=== PATIENT | male | born 1970 | race Caucasian/White ===

== ENCOUNTER 2021-04-06 19:56 | Emergency (ER) | payer MEDICAID ==
[~2021-04-06] VITALS: Ht 165.1 cm; Wt 77.0 kg
[2021-04-06] MEDS ORDERED: DILTIAZEM HCL 5MG/ML 5ML VIAL IV ONE ×2 (21:30)
[2021-04-06 21:50] LABS: BASOPHILS % 0.4 % (0.0-2.0); EOSINOPHILS % 0.7 % (0.0-5.0); HEMATOCRIT. 33.4 % (42.0-52.0); HEMOGLOBIN. 11.3 g/dL (14.0-18.0); LYMPHOCYTES % 16.4 % (20.0-50.0); MEAN CORPUSCULAR VOLUME 91.6 fL (80.0-94.0); MEAN PLATELET VOLUME 9.9 fl (7.4-10.4); MONOCYTES % 9.2 % (2.0-8.0); NEUTROPHILS % 73.3 % (40.0-76.0); PLATELET 279 x1000/uL (130-400); RED BLOOD CELL COUNT 3.65 mill/uL (4.7-6.1); RED CELL DISTRIBUTION WIDTH 13.3 % (11.6-14.6)
[2021-04-06 22:01] LABS: CHLORIDE 110 mEq/L (98-107)
[2021-04-06 22:04] LABS: ETHANOL BLOOD < 10 mg/dL
[2021-04-06] MEDS ORDERED: DILTIAZEM HCL 125 MG in DEXT 5% WATER 100 ML IV STA (23:23)
[2021-04-06] MEDS ORDERED: DILTIAZEM HCL 125 MG in DEXT 5% WATER 100 ML IV PRN (23:30)
[2021-04-06 23:42] LABS: *AMPHETAMINES SCREEN URINE PRESUMTIVE POSITIVE (NEGATIVE); *BARBITURATES SCREEN URINE NEGATIVE (NEGATIVE); *BENZODIAZEPINES SCREEN URINE NEGATIVE (NEGATIVE); *COCAINE SCREEN URINE NEGATIVE (NEGATIVE); CANNABINOID URINE SCREEN NEGATIVE (NEGATIVE); METHADONE URINE SCREEN NEGATIVE (NEGATIVE); OPIATES URINE SCREEN NEGATIVE (NEGATIVE); PHENCYCLIDINE URINE SCREEN NEGATIVE (NEGATIVE)
[2021-04-06] MEDS ORDERED: ASPIRIN 81MG TABLET PO ONE (23:45)
[2021-04-06] MEDS ORDERED: ENOXAPARIN 80MG/0.8ML SYR SUBCUT ONE (23:45)
[2021-04-07] MEDS ORDERED: METOPROLOL TARTRATE 25MG TABLET PO SCH (01:30)
[2021-04-07] MEDS ORDERED: IOHEXOL-350 100 ML BOTTLE ONE (04:40)
[2021-04-07 06:12] VITALS: BP 122/88
== END 2021-04-07 06:14 | disposition left against medical advice (07) ==
LOC: EDBD 19:56 → ER 19:56 → UNDOADMIN 23:34 → MICUSO 23:34
DX: I47.1 Supraventricular tachycardia (principal); I48.92 Unspecified atrial flutter; F15.10 Other stimulant abuse, uncomplicated; I25.2 Old myocardial infarction; Z88.6 Allergy status to analgesic agent; Z79.82 Long term (current) use of aspirin
CPT/HCPCS: 36415; 71045; 71275; 80048; 80305; 80320; 83735; 84484; 85025; 85379; 93005; 96372; 99285; J1650; J3490; Q9967; J7060; G0480

== ENCOUNTER 2021-04-08 06:08 | Inpatient (IN) | payer MEDICAID, OTHER ==
[~2021-04-08] VITALS: Ht 175.3 cm; Wt 79.8 kg
[2021-04-08] MEDS ORDERED: MORPHINE SULFATE 4 MG/ML CPJ (NOT FOR IM USE) IV STA (06:56)
[2021-04-08 07:11] LABS: BASOPHILS % 0.3 % (0.0-2.0); EOSINOPHILS % 1.6 % (0.0-5.0); HEMATOCRIT. 35.9 % (42.0-52.0); LYMPHOCYTES % 15.1 % (20.0-50.0); MEAN CORPUSCULAR HEMOGLOBIN 30.5 pg (28.0-32.0); MEAN CORPUSCULAR VOLUME 91.4 fL (80.0-94.0); MEAN PLATELET VOLUME 8.9 fl (7.4-10.4); MONOCYTES % 8.6 % (2.0-8.0); NEUTROPHILS % 74.4 % (40.0-76.0); PLATELET 295 x1000/uL (130-400); RED BLOOD CELL COUNT 3.93 mill/uL (4.7-6.1); RED CELL DISTRIBUTION WIDTH 13.4 % (11.6-14.6)
[2021-04-08] MEDS ORDERED: DILTIAZEM HCL 5MG/ML 5ML VIAL IV ONE ×2 (07:15→08:00)
[2021-04-08] MEDS ORDERED: MAGNESIUM 2 G PREMIX 50 ML IV ONE (07:15)
[2021-04-08 07:18] LABS: CHLORIDE 110 mEq/L (98-107)
[2021-04-08] MEDS ORDERED: ASPIRIN 81MG TABLET PO ONE (09:30)
[2021-04-08] MEDS ORDERED: DILTIAZEM HCL 125 MG in DEXT 5% WATER 100 ML IV ONE (09:30)
[2021-04-08] MEDS ORDERED: ESMOLOL 2500MG PREMIX 250 ML IV ONE ×2 (10:15→10:45)
[2021-04-08] MEDS ORDERED: ESMOLOL 2500MG PREMIX 250 ML IV NR (10:45)
[2021-04-08] MEDS ORDERED: CLONIDINE 0.1MG TABLET PO PRN (11:15)
[2021-04-08] MEDS ORDERED: MORPHINE SULFATE 4 MG/ML CPJ (NOT FOR IM USE) IV ONE (11:15)
[2021-04-08] MEDS ORDERED: LORAZEPAM 2MG/ML CPJ IV ONE (11:45)
[2021-04-08 12:07] LABS: *AMPHETAMINES SCREEN URINE PRESUMTIVE POSITIVE (NEGATIVE); *BARBITURATES SCREEN URINE NEGATIVE (NEGATIVE); *BENZODIAZEPINES SCREEN URINE NEGATIVE (NEGATIVE); *COCAINE SCREEN URINE NEGATIVE (NEGATIVE)
[2021-04-08 12:08] LABS: CANNABINOID URINE SCREEN NEGATIVE (NEGATIVE); METHADONE URINE SCREEN NEGATIVE (NEGATIVE); OPIATES URINE SCREEN PRESUMTIVE POSITIVE (NEGATIVE); PHENCYCLIDINE URINE SCREEN NEGATIVE (NEGATIVE)
[2021-04-08] MEDS ORDERED: ACETAMINOPHEN 325MG TABLET PO PRN ×2 (12:30)
[2021-04-08] MEDS ORDERED: GUAIFENESIN 200MG/10ML SUGAR FREE UDC PO PRN (12:30)
[2021-04-08] MEDS ORDERED: MAGNESIUM/ALUMINUM HYDROXIDE/SIMETHICONE 30ML UDC PO PRN (12:30)
[2021-04-08] MEDS ORDERED: AMIODARONE HCL 150 MG in DEXT 5% WATER 100 ML IV ONE (12:30)
[2021-04-08] MEDS ORDERED: ONDANSETRON HCL 4MG/2ML INJ IV PRN (12:30)
[2021-04-08] MEDS ORDERED: AMIODARONE HCL 900 MG in DEXT 5% WATER 500 ML IV ONE (12:30)
[2021-04-08] MEDS ORDERED: DOCUSATE SODIUM 100MG CAPSULE PO PRN (12:30)
[2021-04-08 12:59] LABS: TOTAL IRON BINDING CAPACITY 314 ug/dL (250-450)
[2021-04-08 13:14] LABS: FOLIC ACID (FOLATE) SERUM 18.4 ng/mL (>5.38)
[2021-04-08] MEDS ORDERED: DILTIAZEM HCL 125 MG in DEXT 5% WATER 100 ML IV PRN (15:45)
[2021-04-08] MEDS ORDERED: DIGOXIN 500MCG/2ML AMP IV NR (15:55)
[2021-04-08 16:01] LABS: INR 1.3
[2021-04-08] MEDS: DILTIAZEM HCL 125 MG in DEXTROSE 5% WATER 125 ML IV PRN (16:35)
[2021-04-08 16:36] LABS: T4 FREE 1.23 ng/dL (0.76-1.46)
[2021-04-08] MEDS: ENOXAPARIN 80MG/0.8ML SYR SUBCUT SCH (18:09)
[2021-04-08] MEDS: CARVEDILOL 3.125 MG TABLET PO SCH (18:39)
[2021-04-08] MEDS ORDERED: DIGOXIN 500MCG/2ML AMP IV PRN (20:00)
[2021-04-08] MEDS: LORAZEPAM 2MG/ML CPJ IV PRN (23:44)
[2021-04-09] MEDS: CARVEDILOL 3.125 MG TABLET PO SCH (02:00)
[2021-04-09] MEDS ORDERED: DIGOXIN 500MCG/2ML AMP IV NR (04:15)
[2021-04-09 05:30] LABS: CHLORIDE 107 mEq/L (98-107)
[2021-04-09 05:38] LABS: PHOSPHORUS 3.4 mg/dL (2.5-4.9)
[2021-04-09 05:40] LABS: CREATINE KINASE 72 IU/L (39-308)
[2021-04-09 05:42] LABS: BASOPHILS % 0.6 % (0.0-2.0); EOSINOPHILS % 1.4 % (0.0-5.0); HEMATOCRIT. 36.6 % (42.0-52.0); HEMOGLOBIN. 12.3 g/dL (14.0-18.0); LYMPHOCYTES % 18.3 % (20.0-50.0); MEAN CORPUSCULAR VOLUME 92.3 fL (80.0-94.0); MEAN PLATELET VOLUME 9.9 fl (7.4-10.4); MONOCYTES % 8.9 % (2.0-8.0); NEUTROPHILS % 70.8 % (40.0-76.0); PLATELET 313 x1000/uL (130-400); RED BLOOD CELL COUNT 3.97 mill/uL (4.7-6.1); RED CELL DISTRIBUTION WIDTH 13.8 % (11.6-14.6)
[2021-04-09] MEDS: ENOXAPARIN 80MG/0.8ML SYR SUBCUT SCH ×2 (06:00→18:00)
[2021-04-09] MEDS ORDERED: DIGOXIN 500MCG/2ML AMP IV PRN (08:00)
[2021-04-09] MEDS: METOPROLOL TARTRATE 25MG TABLET PO SCH ×3 (08:38→23:19)
[2021-04-09] MEDS ORDERED: ASPIRIN 325MG EC TABLET PO SCH (09:00)
[2021-04-09] MEDS ORDERED: METOPROLOL TARTRATE 25MG TABLET PO SCH (09:45)
[2021-04-09] MEDS: DILTIAZEM HCL 125 MG in DEXTROSE 5% WATER 125 ML IV PRN (20:56)
[2021-04-10] MEDS: LORAZEPAM 2MG/ML CPJ IV PRN (02:35)
[2021-04-10 05:56] LABS: DIGOXIN 0.6 ng/mL (0.9-2.0)
[2021-04-10] MEDS: METOPROLOL TARTRATE 25MG TABLET PO SCH (06:09)
[2021-04-10] MEDS: ENOXAPARIN 80MG/0.8ML SYR SUBCUT SCH (06:09)
[2021-04-10] MEDS: DILTIAZEM HCL 125 MG in DEXTROSE 5% WATER 125 ML IV PRN (06:10)
[2021-04-10 08:50] VITALS: BP 124/68
== END 2021-04-10 09:06 | disposition home or self-care (01) | DRG 190 ==
LOC: ER 06:08 → MICUSO 09:56 → CANRESERV 20:22 → ENRESERV 20:22
PROVIDERS: ADMIT Internal Medicine; ATTEND Internal Medicine
DX: I21.4 Non-ST elevation (NSTEMI) myocardial infarction (principal); E44.0 Moderate protein-calorie malnutrition; I11.0 Hypertensive heart disease with heart failure; D63.8 Anemia in other chronic diseases classified elsewhere; I48.92 Unspecified atrial flutter; I50.9 Heart failure, unspecified; I48.91 Unspecified atrial fibrillation; I47.1 Supraventricular tachycardia; F15.10 Other stimulant abuse, uncomplicated; J45.909 Unspecified asthma, uncomplicated; Z53.29 Procedure and treatment not carried out because of patient's decision for other reasons; R74.01 Elevation of levels of liver transaminase levels; F10.10 Alcohol abuse, uncomplicated; F17.210 Nicotine dependence, cigarettes, uncomplicated; Z20.822 Contact with and (suspected) exposure to COVID-19; I25.2 Old myocardial infarction; Z59.00 Homelessness unspecified; Z79.899 Other long term (current) drug therapy; Z88.6 Allergy status to analgesic agent; Z88.8 Allergy status to other drugs, medicaments and biological substances; Z68.26 Body mass index [BMI] 26.0-26.9, adult
CPT/HCPCS: 36415; 71045; 78580; 80053; 80076; 80162; 80305; 82550; 82607; 82746; 82962; 83540; 83550; 83735; 83880; 84439; 84481; 84484; 85025; 93005; 93970; 99291; 99406; J0282; J1160; J1650; J2060; J2270; J3475; J3490; J7060